=== PATIENT | female | born 1960 ===

== ENCOUNTER 2021-04-13 08:45 | Day surgery (SDC) | payer MEDICARE ==
[2021-04-13] MEDS ORDERED: LACTATED RINGERS 1,000 ML IV ONE (09:02)
--- NOTE | 2021-04-13 09:27 | ANESTHESIA ---
Pre-Anesthesia VS, & Labs - Diagnosis positive cologuard - Procedure colonoscopy Vital Signs: Temp Pulse Resp BP Pulse Ox 37.2 C 106 H 12 145/104 H 98 04/13/21 09:02 04/13/21 09:02 04/13/21 09:02 04/13/21 09:02 04/13/21 09:02 Height: 5 ft 9 in Weight (kg): 83 kg Body Mass Index: 27.0 BMI Classification: Overweight - NPO >8 hours - Is Patient ?: No Home Medications and Allergies Home Medications: Ambulatory Orders Aspirin [Aspirin EC] 81 mg PO DAILY 04/06/21 Calcium Carbonate/Vitamin D3 [Calcium 600-Vit D3 200 Tablet] 3 each PO DAILY 04/06/21 Cranberry Fruit Extract [Cranberry] 500 mg PO DAILY 04/06/21 Rosuvastatin Calcium 10 mg PO DAILY 11/27/19 Aspirin [Aspirin EC] 81 mg PO DAILY 04/06/21 Calcium Carbonate/Vitamin D3 [Calcium 600-Vit D3 200 Tablet] 3 each PO DAILY 04/06/21 Cranberry Fruit Extract [Cranberry] 500 mg PO DAILY 04/06/21 Allergies/Adverse Reactions: Allergies Allergy/AdvReac Type Severity Reaction Status Date / Time No Known Drug Allergies Allergy Verified 09/30/20 14:22 Anes History & Medical History - Anesthetic History Anesthesia Complications: reports: No previous complications - Medical History Cardiovascular: reports: Hypertension, High cholesterol Pulmonary: reports: None Gastrointestinal: reports: None Urinary: reports: None Musculoskeletal: reports: Osteopenia Endocrine/Autoimmune: reports: None Blood Disorders: reports: None Skin: reports: Other Smoking Status: Never smoker History of Cancer?: No - Surgical History General: reports: Cholecystectomy Exam General: Alert Dental: WNL, Dentures full Upper, Dentures full Lower Mouth Opening: Greater than 4 Fingerbreadths Mallampati classification: I Thyromental Distance: greater than 6 cm Respiratory: Lungs clear Cardiovascular: Regular rate, Normal S1, Normal S2 Plan Anesthesia Type: Total IV Consent for Procedure(s) Verified and Reviewed: Yes Code Status: Attempt Resuscitation ASA classification: 2-Mild systemic disease Is this case an emergency?: No
[2021-04-13] MEDS ORDERED: PROPOFOL 500 MG/50 ML 500 MG/50 ML VIAL ONE (10:33)
[2021-04-13] MEDS ORDERED: PROPOFOL 200 MG/20 ML VIAL IVP ONE (10:43)
[2021-04-13] MEDS ORDERED: LACTATED RINGERS 400 ML IV ONE ×2 (11:05)
[2021-04-13 11:26] VITALS: BP 108/90
--- NOTE | 2021-04-13 14:16 | ANESTHESIA POST OP EVALUATION ---
Anesthesia Post Eval - Post Anesthesia Eval Vitals: Last Vital Signs Temp 36.3 C L 04/13/21 11:25 Pulse 72 04/13/21 11:25 Resp 16 04/13/21 11:25 BP 108/90 H 04/13/21 11:25 Pulse Ox 99 04/13/21 11:25 CV Function Including HR & BP: Stable Pain Control: Satisfactory Nausea & Vomiting: Negative Mental Status: Baseline Respiratory Status: Airway Patent Hydration Status: Satisfactory Anesthesia Complications: None
== END 2021-04-13 08:46 | disposition home or self-care (01) ==
LOC: SDS 08:45
PROVIDERS: ATTEND Surgery
DX: R19.5 Other fecal abnormalities (principal); K57.30 Diverticulosis of large intestine without perforation or abscess without bleeding; K64.8 Other hemorrhoids
CPT/HCPCS: 45378; J7120

== ENCOUNTER 2021-04-28 11:51 | Outpatient (CLI) | payer OTHER ==
[2021-04-28 12:31] LABS: CHOL/HDL RATIO 2.7 (<4.4); CHOLESTEROL 170 mg/dL; HDL CHOLESTEROL 63 mg/dL; LDL CHOLESTEROL,CALCULATED 81 mg/dL; LDL/HDL RATIO 1.3 (<4.4); TRIGLYCERIDES 132 mg/dL; VLDL CHOLESTEROL 26 mg/dL
== END 2021-04-28 11:52 | disposition home or self-care (01) ==
LOC: LAB 11:51
PROVIDERS: ATTEND Nurse Practitioner Family
DX: I10 Essential (primary) hypertension (principal); E78.5 Hyperlipidemia, unspecified
CPT/HCPCS: 36415; 80061; 83721; 84443